=== PATIENT | male | born 1955 | race Caucasian/White ===

== ENCOUNTER 2019-02-13 04:55 | Emergency (ER) | payer MEDICARE ==
[~2019-02-13] VITALS: Ht 167.6 cm; Wt 68.5 kg
[2019-02-13] MEDS ORDERED: MORPHINE PO (05:03)
[2019-02-13] MEDS ORDERED: ATOR-2 PO (05:03)
[2019-02-13] MEDS ORDERED: OXYC10TA47 PO (05:03)
[2019-02-13] MEDS ORDERED: ASPI-496 PO (05:03)
[2019-02-13] MEDS ORDERED: METH5TAB2 PO (05:03)
[2019-02-13] MEDS ORDERED: HYDROmorphone 2 MG/ML, 1ML ONE (05:52)
[2019-02-13] MEDS ORDERED: HYDROmorphone 1 MG/ML, 1ML INJ IM ONE (06:00)
--- NOTE | 2019-02-13 06:13 | NUR ---
Pt report from Toni balbuena. This rn to assume care of pt.
--- NOTE | 2019-02-13 06:16 | NUR ---
Md at bedside for shoulder reduction at this time.
[2019-02-13 06:24] VITALS: BP 138/91
--- NOTE | 2019-02-13 06:25 | NUR ---
Pt tolerate reduction well. Amb w/ steady gait to rr at this time. Awaiting second xr.
--- NOTE | 2019-02-13 06:59 | NUR ---
Pt report to Maldonado balbuena.
--- NOTE | 2019-02-13 07:24 | NUR ---
Patient/Caregiver given discharge instructions and they have confirmed that they understand the instructions. Patient ambulatory with steady gait. Pt left with all personal belongings.
== END 2019-02-13 07:26 | disposition home or self-care (01) ==
LOC: ED 05:40
DX: S43.004A Unspecified dislocation of right shoulder joint, initial encounter (principal); S42.201A Unspecified fracture of upper end of right humerus, initial encounter for closed fracture; S42.291A Other displaced fracture of upper end of right humerus, initial encounter for closed fracture; F17.200 Nicotine dependence, unspecified, uncomplicated; W22.8XXA Striking against or struck by other objects, initial encounter; Y93.89 Activity, other specified; Y92.009 Unspecified place in unspecified non-institutional (private) residence as the place of occurrence of the external cause; Y99.8 Other external cause status
CPT/HCPCS: 23650; 73030; 96372; 99284; J1170